=== PATIENT | female | born 1955 | race Caucasian/White ===

== ENCOUNTER 2021-01-29 10:36 | Outpatient (CLI) | payer OTHER | END 2021-01-29 10:37 | disposition home or self-care (01) | LOC: CSHMAMMO 10:36 | PROVIDERS: ATTEND Family Medicine | DX: Z12.31 Encounter for screening mammogram for malignant neoplasm of breast (principal) | CPT/HCPCS: 77063; 77067 ==

== ENCOUNTER 2023-02-04 11:44 | Outpatient (CLI) | payer MEDICARE | END 2023-02-04 11:45 | disposition home or self-care (01) | LOC: CSHMAMMO 11:44 | PROVIDERS: ATTEND Family Medicine | DX: Z12.31 Encounter for screening mammogram for malignant neoplasm of breast (principal) | CPT/HCPCS: 77063; 77067 ==

== ENCOUNTER 2024-02-06 08:30 | Outpatient (CLI) | payer MEDICARE | END 2024-02-06 08:31 | disposition home or self-care (01) | LOC: CSHMAMMO 08:30 | PROVIDERS: ATTEND Family Medicine | DX: Z12.31 Encounter for screening mammogram for malignant neoplasm of breast (principal); Z78.0 Asymptomatic menopausal state; M85.80 Other specified disorders of bone density and structure, unspecified site | CPT/HCPCS: 77063; 77067; 77080 ==